=== PATIENT | male | born 1995 | race Caucasian/White ===

== ENCOUNTER → 2024-07-30 09:50 | Outpatient (REF) | payer BC, SELFPAY | LOC: RCS 09:50 | PROVIDERS: ATTENDING PHYSICIAN Nurse Practitioner Adult Health; FAMILY PHYSICIAN Family Medicine | DX: E78.5 Hyperlipidemia, unspecified (principal); Z82.49 Family history of ischemic heart disease and other diseases of the circulatory system; M79.602 Pain in left arm; Z71.89 Other specified counseling | CPT/HCPCS: 93017 ==